=== PATIENT | female | born 1985 | race Caucasian/White ===

== ENCOUNTER 2021-10-07 14:58 | Outpatient (REF) | payer BC, SELFPAY ==
--- NOTE | 2021-10-07 14:30 | PAPFT_PTH ---
PATIENT: Sharon Valenzuela LOC: [facility] U#:[id number] AGE/SX: 36/F ROOM: RE10/07/[address]: TRINI Cervantes : 1985 BED: DIS: 10/07/2021 SPEC #: [id number] RECD: 10/07/21 18:28 STATUS: [place] REAnderson #: [id number] SOFIE: 10/07/21 14:[address]: Jovana Byers DEPT: [facility] Cytology RECD BY: Rika Shields ENTERED: 10/07/21 18:28 SP TYPE: PAPFT OTHR DR: Breanna Quiroz Tissues: 1 - CX/ENDOCX FOR PAP SMEARS Procedures: PAP THIN PREP/[facility] Screening HPV DNA PROBE Comments: [id number]
== END 2021-10-07 14:59 | disposition home or self-care (01) ==
LOC: LBN 14:58
PROVIDERS: PCP Nurse Practitioner Family; Visit Provider Nurse Practitioner Family
DX: Z12.4 Encounter for screening for malignant neoplasm of cervix (principal); Z11.51 Encounter for screening for human papillomavirus (HPV)
CPT/HCPCS: 88142; 87624